=== PATIENT | female | born 1940 | race Hispanic/Latino ===

== ENCOUNTER → 2022-02-11 | Outpatient (CLI) | payer OTHER ==
[~2022-02-11] MED LIST: ALEN70TA80 PO; ASPI-1012 PO; CALC-1158 PO; HYDR-2132 PO; LOSA1TAB37 PO; OMEG1CAP31 PO; ROSU20TA23 PO
== END | disposition home or self-care (01) ==
LOC: RAH 08:52
PROVIDERS: ATTEND Internal Medicine
DX: M47.27 Other spondylosis with radiculopathy, lumbosacral region (principal); M51.26 Other intervertebral disc displacement, lumbar region
CPT/HCPCS: 72148